=== PATIENT | female | born 1995 | race Caucasian/White ===

== ENCOUNTER 2023-03-12 21:48 | Emergency (ER) | payer BC ==
[~2023-03-12] VITALS: Ht 152.4 cm; Wt 51.7 kg
[2023-03-12 21:59] VITALS: BP 118/72
--- NOTE | 2023-03-12 21:59 | NUR ---
BIBS FOR R BROW SKIN RASH. REFERRED BY URGENT CARE AND TOLD POSSIBLE MRSA MILD THROAT TIGHTNESS 98%RA -RESP DISTRESS
--- NOTE | 2023-03-12 22:02 | NUR ---
EMT AT PT'S BEDSIDE FOR WOUND CARE
--- NOTE | 2023-03-12 22:30 | NUR ---
ELIZABETH PSYCHIATRIC NURSE AT PT'S BEDSIDE
--- NOTE | 2023-03-12 23:00 | NUR ---
Patient discharged to home in stable condition. Written and verbal after care instructions given. Patient verbalizes understanding of instruction.
== END 2023-03-12 23:01 | disposition home or self-care (01) ==
LOC: ER 21:50
DX: L01.00 Impetigo, unspecified (principal); F41.9 Anxiety disorder, unspecified